=== PATIENT | female | born 1985 | race Caucasian/White ===

== ENCOUNTER 2019-07-29 03:34 | Emergency (ER) | payer BC ==
[~2019-07-29] VITALS: Ht 175.3 cm; Wt 95.3 kg
[~2019-07-29 03:34] MED LIST: ATIVAN1 MG PO; PHENERGAN 25 MG25 M1 PO; ZANTAC 150MG T150 MG PO; ZOFRAN ODT4 MG PO
[2019-07-29] MEDS ORDERED: BUTALB-APAP-CA1 EACH PO (05:03)
[2019-07-29 06:48] VITALS: BP 116/76
== END 2019-07-29 06:49 | disposition home or self-care (01) ==
LOC: ER 03:34
DX: T88.59XA Other complications of anesthesia, initial encounter (principal); G44.40 Drug-induced headache, not elsewhere classified, not intractable; M54.2 Cervicalgia; F41.9 Anxiety disorder, unspecified; F17.210 Nicotine dependence, cigarettes, uncomplicated